=== PATIENT | male | born 1965 | race Caucasian/White ===

== ENCOUNTER 2023-03-01 13:32 | Emergency (ER) | payer BC ==
[2023-03-01 13:44] VITALS: BP 124/92; PULSE 94; RESP 18; TEMP 98; BMI 23.1
[2023-03-01] MEDS ORDERED: KETOROLAC TROMETHAMINE 30 MG/1 ML VIAL IVPUSH ONE (14:03)
[2023-03-01] MEDS ORDERED: ACETAMINOPHEN 1000 MG/100 ML BAG IVPB ONE (14:03)
[2023-03-01] MEDS ORDERED: ACETAMINOPHEN INJECTION 100 ML IVPB ONE (14:26)
[2023-03-01] MEDS ORDERED: KETOROLAC TROMETHAMINE 30 MG/1 ML VIAL ONE (14:26)
[2023-03-01 14:44] LABS: HEMATOCRIT 46.2 % (35.4-49); HEMOGLOBIN 15.5 G/dL (11.7-16.9); MCH 31.2 pg (25.7-33.7); MCHC 33.6 g/dl (32.0-35.9); MEAN CELL VOLUME 92.8 fl (80-96); MEAN PLT VOLUME 8.3 fl (7.5-11.1); PLATELET COUNT 232.3 10^3/uL (134-434); RBC 4.98 10^6/uL (4.00-5.60); RDW 13.3 % (11.9-15.9)
[2023-03-01 14:51] LABS: ALBUMIN 4.3 g/dl (3.4-5.0); BILIRUBIN,TOTAL 0.5 mg/dl (0.2-1); CALCIUM 9.4 mg/dl (8.5-10.1); CREATININE 1.1 mg/dl (0.6-1.3); POTASSIUM 3.6 mmol/L (3.5-5.1); TOT PROT 6.8 g/dl (6.4-8.2)
[2023-03-01 14:55] LABS: PLATELET ESTIMATE ADEQUATE
[2023-03-01] MEDS ORDERED: diazePAM 2 MG TABLET PO ONE (15:46)
[2023-03-01] MEDS ORDERED: diazePAM 2 MG TABLET ONE (15:50)
== END 2023-03-01 18:50 | disposition home or self-care (01) ==
LOC: FER 13:32
PROC: 3E033NZ Introduction of Analgesics, Hypnotics, Sedatives into Peripheral Vein, Percutaneous Approach (ICD-10-PCS; principal; 2023-03-01)
PROC: 3E033GC Introduction of Other Therapeutic Substance into Peripheral Vein, Percutaneous Approach (ICD-10-PCS; 2023-03-01)
DX: M79.602 Pain in left arm (principal); M54.12 Radiculopathy, cervical region
CPT/HCPCS: 36415; 72125-TC; 80053; 84484; 85027; 93005; 99285-25

== ENCOUNTER 2023-09-15 08:48 | Emergency (ER) | payer OTHER, BC ==
[2023-09-15 09:05] VITALS: BP 179/118; PULSE 93; RESP 18; TEMP 98.6; BMI 23.7
[2023-09-15] MEDS ORDERED: DIPHTH,PERTUSS(ACELL),TET 0.5 ML DISP.SYRIN IM ONE (09:21)
[2023-09-15] MEDS: DIPHTH,PERTUSS(ACELL),TET 0.5 ML DISP.SYRIN IM ONE (09:42)
[2023-09-15] MEDS ORDERED: ACETAMINOPHEN 500 MG TABLET (FP) ONE (10:35)
[2023-09-15] MEDS: ACETAMINOPHEN 500 MG TABLET (FP) PO ONE (10:40)
== END 2023-09-15 10:52 | disposition home or self-care (01) ==
LOC: FER 08:48
PROC: 3E0234Z Introduction of Serum, Toxoid and Vaccine into Muscle, Percutaneous Approach (ICD-10-PCS; principal; 2023-09-15)
DX: R51.9 Headache, unspecified (principal); M25.531 Pain in right wrist; Y04.8XXA Assault by other bodily force, initial encounter; Z23 Encounter for immunization
CPT/HCPCS: 70450-TC; 70486-TC; 73110-TC-RT-FY; 73130-TC-RT-FY; 90715